=== PATIENT | female | born 1965 | race Hispanic/Latino ===

== ENCOUNTER → 2025-03-11 | Day surgery (SDC) | payer OTHER ==
[~2025-03-11] MED LIST: CALCIUM; GLUCAGON FOR INJ 1 MG VIAL ONE; HYOSCYAMINE SULFATE 0.5 MG/ML INJ ONE; MAGNESIUM; METOCLOPRAMIDE HCL 10 MG/2ML VIAL ONE; OMEPRAZOLE40 MG PO; POTASSIUM; PROPOFOL IV EMULSION 10 MG/ML 20 ML VIAL ONE
[2025-03-11] MEDS: LACTATED RINGER'S 1,000 ML ONE (08:24)
[2025-03-11 09:10] VITALS: TEMP 97
[2025-03-11 09:30] VITALS: BP 114/64; PULSE 81; RESP 18; O2SAT 98
== END | disposition home or self-care (01) ==
LOC: OR 07:43
PROVIDERS: ATTEND Internal Medicine Gastroenterology
DX: K21.00 Gastro-esophageal reflux disease with esophagitis, without bleeding (principal); Z09 Encounter for follow-up examination after completed treatment for conditions other than malignant neoplasm; D12.0 Benign neoplasm of cecum; K22.10 Ulcer of esophagus without bleeding; K29.50 Unspecified chronic gastritis without bleeding; K44.9 Diaphragmatic hernia without obstruction or gangrene; K57.30 Diverticulosis of large intestine without perforation or abscess without bleeding; K64.8 Other hemorrhoids; E78.5 Hyperlipidemia, unspecified; M81.8 Other osteoporosis without current pathological fracture; Z01.810 Encounter for preprocedural cardiovascular examination
CPT/HCPCS: 43239; 45385; 93005; J1610; J1980; J2470; J2704; J2765; J7121